=== PATIENT | male | born 2000 | race Two or more races ===

== ENCOUNTER 2023-11-23 08:02 | Emergency (ER) | payer OTHER, SELFPAY ==
--- NOTE | 2023-11-23 08:04 | ED.GENADULT ---
HPI - General Adult General Chief complaint: Extremity Problem,Nontraumatic Stated complaint: INGROWN TOENAIL Time Seen by Provider: 11/23/23 08:04 Source: patient Mode of arrival: ambulatory Limitations: no limitations History of Present Illness HPI narrative: 23-year-old male patient presents to the [facility] with complaints of right great toe pain. Patient states that they were concerned for possible infected ingrown toe. Patient states he has had symptoms since October 16. Denies any trauma to the toe that he is aware of. Patient is accompanied to the [facility] today by his caregiver. Patient does have history of autism. Patient states he has been putting Neosporin and a Band-Aid to the area. Related Data Home Medications Medication Instructions Recorded Confirmed fluoxetine 20 mg capsule (Prozac) 20 mg PO DAILY 11/23/23 11/23/23 losartan 25 mg tablet 25 mg PO DAILY 11/23/23 11/23/23 Allergies Allergy/AdvReac Type Severity Reaction Status Date / Time amoxicillin [From Augmentin] AdvReac Diarrhea Verified 11/23/23 08:13 clavulanic acid AdvReac Diarrhea Verified 11/23/23 08:13 [From Augmentin] Review of Systems Review of Systems: CONSTITUTIONAL: Denies fever, chills, or sweats. EYES: Denies visual changes, redness, or discharge. ENT: Denies rhinorrhea, congestion, sore throat, or otalgia. CARDIOVASCULAR: Denies chest pain, palpitations, or edema. RESPIRATORY: Denies cough or dyspnea. GASTROINTESTINAL: Denies abdominal pain, nausea, vomiting, or diarrhea. GENITOURINARY: Denies dysuria or hematuria. SKIN: Denies rash or itching. Positive pain to right great toe X month and a half MUSCULOSKELETAL: Denies back pain, joint pain, or myalgia. NEUROLOGIC: Denies headache, numbness, or weakness. PSYCHIATRIC: Denies anxiety or depression. [facility] Past Medical History Medical History (Updated 11/23/23 @ 10:24 by ALLY Roland) Hypertension Comments At the time of my signature I agree with nursing past medical history, surgical, social, and family history. There is no relevant family history pertinent to the presenting complaint. Exam Narrative: GENERAL: Well-appearing, well-nourished, and in no acute distress. HEAD: Normocephalic, atraumatic. EYES: PERRLA and EOMI. ENT: Nares clear, no rhinorrhea or epistaxis. Mucous membranes moist. NECK: Supple. No lymphadenopathy CHEST: Clear to auscultation. No respiratory distress. HEART: Regular rate and rhythm. No murmur heard. Normal peripheral pulses. ABDOMEN: Soft, nontender, nondistended, normal active bowel sounds. EXTREMITIES: Normal range of motion. No edema. SKIN: Warm, dry, no rash.patient has Significant scabbing noted to the right great toe on the lateral side. There is some surrounding erythema, and tenderness. There is some darkening skin noted around the nail bed of the right great toe. There is some yellow discharge present coming from underneath the toenail. patient's toenail does appear in jagged. NEURO: No focal deficits. Alert and oriented x3. Course Course Level of Care: Express Care Visit Vital Signs Vital signs: Vital Signs Temperature 36.6 C 11/23/23 08:17 Pulse Rate 89 11/23/23 08:17 Respiratory Rate 16 11/23/23 08:17 Blood Pressure 133/98 H 11/23/23 08:17 Pulse Oximetry 99 11/23/23 08:17 Temperature 36.6 C 11/23/23 08:17 Pulse Rate 89 11/23/23 08:17 Respiratory Rate 16 11/23/23 08:17 Blood Pressure 133/98 H 11/23/23 08:17 Pulse Oximetry 99 11/23/23 08:17 Vital signs reviewed The patient has been informed that they may have pre-hypertension or Hypertension based on a BP reading in the department. I recommend that the patient call the primary care provider listed on their discharge instructions or a physician of their choice this week to arrange follow up for further evaluation of possible pre-hypertension or Hypertension Procedures Abscess I/D foot: Date of
[2023-11-23 08:17] VITALS: BP 133/98; PULSE 89; RESP 16; TEMP 36.6; O2SAT 99
[2023-11-23] MEDS: LIDOCAINE, EPINEPHRINE, TETRACAINE VISCOUS SOLN 3 ML TOPICAL (08:34)
== END 2023-11-23 10:38 | disposition home or self-care (01) ==
PROVIDERS: Emergency Provider Nurse Practitioner Family; PCP Internal Medicine
DX: L60.0 Ingrowing nail (principal); F84.0 Autistic disorder; I10 Essential (primary) hypertension
CPT/HCPCS: 11765; 99213; G0463